=== PATIENT | female | born 1965 | race Caucasian/White ===

== ENCOUNTER 2017-12-29 13:05 | Emergency (ER) | payer SELFPAY ==
[~2017-12-29] VITALS: Ht 160 cm; Wt 115.0 kg
[2017-12-29 13:17] VITALS: BP 146/65; PULSE 64; RESP 17; TEMP 98.1; O2SAT 98
[2017-12-29] MEDS ORDERED: CLIN300C5 PO (15:23)
[2017-12-29] MEDS ORDERED: BACT800T5 PO (15:23)
--- NOTE | 2017-12-29 15:27 | PD ---
HPI Chief Complaint: Skin Problem Time Seen by Provider: 15:06 Travel History International Travel<30 days: No Contact w/Intl Traveler<30days: No Traveled to known affect area: No History of Present Illness HPI Patient comes emergency department complaining of a painful red area on her right posterior forearm proximally. Patient started off as a small pink area yesterday since gotten larger and more painful. Patient reports feels like an achiness is worse to palpation. Denies any radiation of the pain. Denies anything making symptoms better. Denies any fevers. Severity mild. Patient denies any known trauma, numbness or tingling anywhere, weakness, or being or anyone else with similar. Patient reports she is ambidextrous. PFSH Past Medical History Genitourinary: Yes (Kidney transplant) Hypertension: Yes ?: Not Social History Alcohol Use: Yes (occ) Tobacco Use: No Substance Use: No Allergies-Medications (Allergen,Severity, Reaction): Coded Allergies: Iodinated Contrast- Oral and IV Dye (Verified Allergy, Severe, wheezing and rash, 12/29/17) Penicillins (Verified Allergy, Severe, respiratory, 12/29/17) dexamethasone (Verified Allergy, Severe, unresponsive, 12/29/17) erythromycin base (Verified Allergy, Severe, wheezing and rash, 12/29/17) Tetracyclines (Verified Allergy, Intermediate, rash, 12/29/17) latex (Verified Allergy, Intermediate, rash, 12/29/17) Reported Meds & Prescriptions Reported Meds & Active Scripts Active Clindamycin (Clindamycin HCl) 300 Mg Cap 300 Mg PO Q6H 10 Days Bactrim DS (Sulfamethoxazole-Trimethoprim) 800-160 Mg Tab 1 Tab PO BID Review of Systems Except as stated in HPI: all other systems reviewed are Neg Physical Exam Narrative GENERAL: Well-developed, over the nourished, in no acute distress, and non-ill appearing. SKIN: Small approximately 2 cm diameter area of erythematous is indurated noted on the right forearm proximally dorsal aspect. No fluctuation, crepitus, or drainage. Is mildly tender to palpation. Does not involve the elbow joint. Patient has full range of motion of the right elbow without difficulty. Neurovascular intact distally. Appears mild cellulitis. Noncircumferential. HEAD: Atraumatic. Normocephalic. EYES: Pupils equal and round. EOMI. No scleral icterus. No injection or drainage. ENT: No nasal bleeding or discharge. Mucous membranes pink and moist. NECK: Trachea midline. Supple. No nuclear rigidity. CARDIOVASCULAR: Capillary refill less than 2 seconds. RESPIRATORY: No accessory muscle use. No respiratory distress. MUSCULOSKELETAL: No obvious deformities. No clubbing. No cyanosis. No edema. Full range of motion. NEUROLOGICAL: Awake and alert. No obvious cranial nerve deficits. Motor grossly within normal limits. Normal speech. PSYCHIATRIC: Appropriate mood and affect; insight and judgment normal. Data Data Last Documented VS Vital Signs Date Time Temp Pulse Resp B/P (MAP) Pulse Ox O2 Delivery O2 Flow Rate FiO2 12/29/17 13:17 98.1 64 17 146/65 (92) 98 Orders Orders Ed Discharge Order (12/29/17 15:27) [facility] Medical Decision Making Medical Screen Exam Complete: Yes Emergency Medical Condition: Yes Differential Diagnosis Abscess, cellulitis, inflammatory reaction, gangrene, allergic reaction Narrative Course The patient has no evidence of obvious abscess at this time. The patient will be discharged on antibiotics for cellulitis with possible early/immature abscess. Clinical suspicion, diagnosis and care management was discussed. The patient was given signs and symptoms warnings for worsening infection, such as spreading of redness, increasing pain, and/or swelling, associated heat, pus or fever and instructed to return immediately if these signs or symptoms worsen. The patient is to return in 2 days for recheck for maturity. Sooner if worsens or as needed. The patient agrees with plan. Patient in no obvious distress upon re-evaluation. Patient was asked if they wanted to speak to my attending, which the patient did not wish to do at this time. Any questions/concerns in reference to patient diagnosis/condition discussed and clarified prior to patient's discharge. Reinforced sheer importance of close follow up with patient's primary physician or primary care clinic. Instructed patient to return to ED immediately, if symptoms return/ worsen. Patient showed understanding of above instructions. Further instructions and recommendations were detailed in discharge paperwork. Patient ambulated without difficulty out of ED at discharge. Diagnosis Primary Impression: Cellulitis Qualified Codes: L03.113 - Cellulitis of right upper limb Patient Instructions: Cellulitis (ED), General Instructions Additional Instructions: Follow-up with your primary care physician or return here in 2 days for recheck. Take all medication as prescribed. Return to the emergency department sooner if symptoms get worse, fevers, inability to move right elbow, or further concerns. Med/Other Pt SpecificInfo: Prescription(s) given Scripts Clindamycin (Clindamycin) 300 Mg Cap 300 MG PO Q6H for Infection for 10 Days, #40 CAP 0 Refills Prov: Alen Chavis MD 12/29/17 Sulfamethoxazole-Trimethoprim (Bactrim DS) 800-160 Mg Tab 1 TAB PO BID for Infection, #20 TAB 0 Refills Prov: Alen Chavis MD 12/29/17 Disposition: 01 DISCHARGE HOME Condition: Stable Chino Del Valle Dec 29, 2017 15:27
== END 2017-12-29 15:40 | disposition home or self-care (01) ==
LOC: NEPD 13:05
DX: L03.113 Cellulitis of right upper limb (principal); I10 Essential (primary) hypertension; Z94.0 Kidney transplant status; Z88.0 Allergy status to penicillin; Z88.1 Allergy status to other antibiotic agents; Z88.8 Allergy status to other drugs, medicaments and biological substances
CPT/HCPCS: 99283